=== PATIENT | female | born 1980 | race Caucasian/White ===

== ENCOUNTER 2024-08-09 13:02 | Outpatient (CLI) | payer BC, SELFPAY | END 2024-08-09 13:03 | disposition home or self-care (01) | PROVIDERS: PCP Physician Assistant Medical; Visit Provider Physician Assistant Medical | DX: E88.819 Insulin resistance, unspecified (principal); Z13.29 Encounter for screening for other suspected endocrine disorder | CPT/HCPCS: 80053; 80061; 84443 ==

== ENCOUNTER 2024-11-30 12:58 | Outpatient (CLI) | payer BC, SELFPAY ==
--- NOTE | 2024-11-30 13:20 | CRLHL7_ITS ---
For Patients: As a result of the Century Cures Act, medical imaging exams and procedure reports are released immediately into your electronic medical record. You may view this report before your referring provider. If you have questions, please contact your health care provider. BILATERAL DIGITAL SCREENING MAMMOGRAM WITH COMPUTER-AIDED DETECTION AND TOMOSYNTHESIS CLINICAL HISTORY: Routine screening exam. COMPARISON: None. TECHNIQUE: Digital mammogram in CC and MLO projections including computer-aided detection (CAD). Tomosynthesis was used in this interpretation. BREAST COMPOSITION: There are scattered areas of fibroglandular density. FINDINGS: RIGHT Breast: No suspicious findings. LEFT Breast: Focal asymmetric density 12 o`clock 5 cm from the nipple. IMPRESSION: LEFT breast asymmetry/mass. RECOMMENDATIONS: Additional mammographic views of the LEFT breast including 3D spot compression CC/MLO. LEFT breast ultrasound may also be required. The [facility] will contact the patient. A lay language report of this examination will be provided to the patient. BI-RADS Category 0: Incomplete: Need Additional Imaging Evaluation Dictated by Tay Velez MD @ 12/03/2024 9:31:35 AM jj/Dictated by: Tay Velez MD @ 12/03/2024 9:31:00 AM (Electronically Signed)
== END 2024-11-30 12:59 | disposition home or self-care (01) ==
LOC: MAMMO 12:59
PROVIDERS: PCP Physician Assistant Medical; Visit Provider Physician Assistant Medical
DX: Z12.31 Encounter for screening mammogram for malignant neoplasm of breast (principal); N63.20 Unspecified lump in the left breast, unspecified quadrant
CPT/HCPCS: 77063; 77067

== ENCOUNTER 2024-12-13 09:42 | Outpatient (CLI) | payer BC, SELFPAY ==
--- NOTE | 2024-12-13 09:45 | CRLHL7_ITS ---
For Patients: As a result of the Cures Act, medical imaging exams and procedure reports are released immediately into your electronic medical record. You may view this report before your referring provider. If you have questions, please contact your health care provider. DIGITAL DIAGNOSTIC LEFT MAMMOGRAM USING TOMOSYNTHESIS LEFT BREAST ULTRASOUND CLINICAL HISTORY: LEFT breast mass/asymmetry. COMPARISON: 11/30/2024. TECHNIQUE: Digital LEFT mammogram in two projections. Tomosynthesis was used in this interpretation. Real-time ultrasound imaging of LEFT breast with imaging documentation. Scanning was performed by both the technologist and the radiologist. BREAST COMPOSITION: The breast is heterogeneously dense, which may obscure small masses. FINDINGS: 3D spot compression CC/MLO LEFT breast mammogram images submitted. No architectural distortion. No suspicious calcifications. No adenopathy. Targeted LEFT breast ultrasound performed. At 12 o`clock 5 cm from the nipple. Multiple small cysts are present measuring up to 9 mm. An additional circumscribed hypoechoic nodule is present at posterior depth 1 o`clock 3 cm from the nipple measuring 13 x 7 x 13 mm. IMPRESSION: Benign cysts LEFT breast 12 o`clock 5 cm from the nipple measuring up to 9 mm. Benign fibroadenoma LEFT breast 1 o`clock 3 cm from the nipple measuring 1.3 cm. RECOMMENDATIONS: Routine screening mammography. A lay language report of this examination will be provided to the patient. BI-RADS Category 2: Benign Dictated by Tay Velez MD @ 12/13/2024 10:56:37 AM jj/Dictated by: Tay Velez MD @ 12/13/2024 10:56:00 AM (Electronically Signed)
--- NOTE | 2024-12-13 10:15 | CRLHL7_ITS ---
For Patients: As a result of the Cures Act, medical imaging exams and procedure reports are released immediately into your electronic medical record. You may view this report before your referring provider. If you have questions, please contact your health care provider. SEE DIGITAL DIAGNOSTIC LEFT MAMMOGRAM PERFORMED SAME DAY CRL:fatmata avilez/Dictated by: Tay Velez MD @ 12/13/2024 10:56:00 AM (Electronically Signed)
== END 2024-12-13 09:43 | disposition home or self-care (01) ==
LOC: MAMMO 09:43
PROVIDERS: PCP Physician Assistant Medical; Visit Provider Physician Assistant Medical
DX: N63.20 Unspecified lump in the left breast, unspecified quadrant (principal); R92.8 Other abnormal and inconclusive findings on diagnostic imaging of breast
CPT/HCPCS: 76642; 77065; G0279